=== PATIENT | male | born 1995 ===

== ENCOUNTER 2018-01-15 16:34 | Emergency (ER) | payer SELFPAY ==
[2018-01-15] MEDS ORDERED: Iohexol 300 100 ML IJ ONE (17:12)
[2018-01-15] MEDS ORDERED: Sodium Chloride 0.9% 50 ML IV ONE (17:13)
[2018-01-15 17:54] LABS: BASO % 0.1 % (0.0-2.0); EOS % 0.4 % (0.0-4.0); HEMOGLOBIN 14.5 g/dL (12.0-18.0); LYMPH # 1.5 K/uL (1.0-4.3); LYMPH % 17.1 % (20.0-40.0); MEAN CELL VOLUME 89.4 fl (80.0-94.0); MEAN CORPUSCULAR HEMOGLOBIN 31.3 pg (27.0-31.0); MEAN PLATELET VOLUME 9.1 fl (7.2-11.7); MONO # 0.6 K/uL (0.0-0.8); MONO % 6.8 % (0.0-10.0); NEUT # 6.7 K/uL (1.8-7.0); NEUT % 75.6 % (50.0-75.0); RBC 4.64 Mil/uL (4.40-5.90); RED CELL DISTRIBUTION WIDTH 12.7 % (11.5-14.5); WHITE BLOOD COUNT 8.8 K/uL (4.8-10.8)
[2018-01-15 18:03] LABS: ALB/GLOB RATIO 1.1 (1.0-2.1); ALBUMIN 4.4 g/dL (3.5-5.0); ALT/SGPT 38 U/L (21-72); AST/SGOT 24 U/L (17-59); BLOOD UREA NITROGEN 15 mg/dl (9-20); CALCIUM 9.5 mg/dL (8.4-10.2); GFR AFRICAN-AMERICAN > 60; GFR NON-AFRICAN AMERICAN > 60
--- NOTE | 2018-01-15 19:06 | ED PDOC ---
HPI: Skin/Bite Injury Time Seen by Provider: 01/15/18 16:54 Chief Complaint (Nursing): Abnormal Skin Integrity Chief Complaint (Provider): Presumed right buttock abscess History Per: Patient History/Exam Limitations: no limitations Onset/Duration Of Symptoms: Persistent (8 weeks) Current Symptoms Are (Timing): Still Present Location Of Injury: Right: Buttock Quality Of Symptoms: Painful, Draining Additional History Per: Patient Additional Complaint(s): 22yo male, sent to ER from clinic for evaluation of a presumed right buttock abscess. Patient states the symptoms have been ongoing for approximately 8 weeks with pain and recently the abscess has started draining. Patient went to a hospital in [place] in early November and states "they didn't do anything for me. " Patient was evaluated at [facility] and started on an unknown antibiotic, which the patient states he completed earlier this month. He does report a fever 5 days ago and states he has pain with defecation. Otherwise, patient denies any other skin problems, abscesses, and offers no other medical complaints. Past Medical History Reviewed: Historical Data, Nursing Documentation, Vital Signs Vital Signs: Last Vital Signs Temp 99.1 F 01/15/18 19:41 Pulse 70 01/15/18 21:49 Resp 18 01/15/18 21:49 BP 118/75 01/15/18 21:49 Pulse Ox 100 01/15/18 21:49 - Medical History PMH: No Chronic Diseases Denies: Chronic Kidney Disease - Surgical History Surgical History: No Surg Hx - Family History Family History: States: No Known Family Hx - Social History Current smoker - smoking cessation education provided: No - Immunization History Hx Tetanus Toxoid Vaccination: No Hx Influenza Vaccination: No Hx Pneumococcal Vaccination: No - Allergies Allergies/Adverse Reactions: Allergies Allergy/AdvReac Type Severity Reaction Status Date / Time Penicillins Allergy RASH Verified 01/15/18 16:38 Review of Systems ROS Statement: Except As Marked, All Systems Reviewed And Found Negative Constitutional: Positive for: Fever (5 days ago). Negative for: Chills Gastrointestinal: Negative for: Vomiting, Diarrhea Genitourinary Male: Negative for: Dysuria, Frequency, Hematuria Skin: Positive for: Other (painful drianing abscess to right buttock) Physical Exam - Reviewed Nursing Documentation Reviewed: Yes Vital Signs Reviewed: Yes - Physical Exam Appears: Positive for: Non-toxic Skin: Positive for: Warm, Dry Cardiovascular/Chest: Negative for: Tachycardia Respiratory: Negative for: Respiratory Distress Rectal: Positive for: Other (right buttock with a 6cm area of tenderness, induration and drainage. There is a questionable small mass like tissue extruding from wound.). Negative for: Tenderness Neurologic/Psych: Positive for: Alert, Oriented. Negative for: Motor/Sensory Deficits - Laboratory Results Result Diagrams: 01/15/18 17:49 01/15/18 17:49 - ECG O2 Sat by Pulse Oximetry: 98 (RA) Pulse Ox Interpretation: Normal Medical Decision Making Medical Decision Making: Impression: Given clinical exam and 8+ weeks of symptoms, concern for complexity to lesion/malignancy Plan: -- Labs -- CT Pelvis w/ IV contrast [address] Woo pending imaging studies. Scribe Attestation: Documented by Karen Peace, acting as a scribe for Demarcus Peoples DO. Provider Scribe Attestation: All medical record entries made by the Scribe were at my direction and personally dictated by me. I have reviewed the chart and agree that the record accurately reflects my personal performance of the history, physical exam, medical decision making, and the department course for this patient. I have also personally directed, reviewed, and agree with the discharge instructions and disposition. Disposition - Clinical Impression Clinical Impression: Fistula - Patient ED Disposition Is Patient to be Admitted: Transfer of Care - Disposition Referrals: Valerie Ramsey MD [Staff Provider] - Disposition: Transfer of Care Disposition Time: 19:10 Condition: STABLE Instructions: Enterocutaneous Fistula (DC) Forms: SinglePlatform Connect (Tuvaluan) Print Language: CITIZEN OF [place] Patient Signed Over To: Sha Woo Handoff Comments: Pending CT study, reevaluation
--- NOTE | 2018-01-15 19:33 | ED PDOC ---
- Laboratory Results Result Diagrams: 01/15/18 17:49 01/15/18 17:49 - ECG O2 Sat by Pulse Oximetry: 98 (RA) Pulse Ox Interpretation: Normal Medical Decision Making Medical Decision Making: Time: [address] Re[address] Peoples pending CT studies. Time: 2009 CT Pelvis FINDINGS: Bowel: Unremarkable. Appendix: Normal appendix. Intraperitoneal space: Unremarkable. No free air. No significant fluid collection. Bladder: Unremarkable. No mass. Reproductive: Unremarkable as visualized. Bones/joints: No acute fracture. No dislocation. Soft tissues: There is a soft tissue density in the medial right buttock measuring 3.5 x 0.9 cm possibly representing a rectocutaneous fistula or phlegmon formation. No definite abscess is identified. Vasculature: Unremarkable. No lower abdominal aortic aneurysm. Lymph nodes: Unremarkable. No enlarged lymph nodes. IMPRESSION: There is a soft tissue density in the medial right buttock measuring 3.5 x 0.9 cm possibly representing a rectocutaneous fistula or phlegmon formation. No definite abscess is identified. Time: 2014 Case discussed with surgery resident circular sawyer stone, who will evaluate patient at bedside. Time: 2041 Patient seen and evaluated by assistant professor surgical technology and Dr. Gonzales. Patient has a scheduled surgical appointment with Dr. Ramsey in [address] Gonzales, patient does not need antibiotics. Discussed with patient to keep scheduled appointment with Dr. Ramsey; he is agreeable with plan and is stable for discharge home. Scribe Attestation: Documented by Karen Peace, acting as a scribe for Sha Woo MD. Provider Scribe Attestation: All medical record entries made by the Scribe were at my direction and personally dictated by me. I have reviewed the chart and agree that the record accurately reflects my personal performance of the history, physical exam, medical decision making, and the department course for this patient. I have also personally directed, reviewed, and agree with the discharge instructions and disposition. Disposition - Clinical Impression Clinical Impression: Fistula - POA Present On Arrival: None - Disposition Referrals: Valerie Ramsey MD [Staff Provider] - Disposition: Routine/Home Disposition Time: 21:39 Condition: STABLE Instructions: Enterocutaneous Fistula (DC) Forms: SOAK (Smart [employer]ational [employer] toolKit) (Solomon Islander) Print Language: URDU
[2018-01-15 19:42] VITALS: TEMP 99.1
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
[2018-01-15 21:50] VITALS: BP 118/75; PULSE 70; RESP 18
--- NOTE | 2018-01-16 14:59 | CT ---
Date of service: 01/15/2018 PROCEDURE: CT pelvis HISTORY: R buttock abscess COMPARISON: Not available TECHNIQUE: Computed tomography of the pelvis was performed following the intravenous administration of contrast material. Contiguous 2.5 mm axial sections were acquired through the pelvis. Sagittal and coronal images were reformatted from the axial scan. Total exam DLP: 178.79 mGy-cm. This CT exam was performed using 1 or more of the following dose reduction techniques: Automated exposure control, adjustment of the mA and/or kV according to patient size, and/or use of iterative reconstruction technique. FINDINGS: There is abnormal soft tissue density along medial right gluteus extending along the right for lateral aspect of the gluteal crease and along decreased towards the anus. This soft tissue density measures approximately 0.8 x 2.8 x 3.8 cm. It is flattened, adjacent to the gluteal crease. There is no clear evidence of perianal abscess. The findings are not felt to reflect a jose l abscess as no low-density collection is evident. Focal thickening of the skin at the site of this abnormal soft tissue density suggests cellulitis. The pelvic contents are unremarkable in appearance aside from mild sigmoid diverticulosis. There is no evidence diverticulitis. No abnormal bowel loops are otherwise appreciated. A normal appendix is identified. The bladder is unremarkable. The prostate and seminal vesicles are normal in appearance. There is no lymphadenopathy seen. The visualized osseous structures are unremarkable. IMPRESSION: Focal flattened soft tissue density along right gluteal crease extending toward the anus, without evidence of jose l abscess, either in the gluteal region or perianal abscess. Likely focal cellulitis. Possibility of rectocutaneous fistula should be considered. The preliminary findings for this examination were reported by Mogreet at 6:10 p.m. on 01/15/2018. There is concurrence of this report with the preliminary findings.
[2018-01-19 15:00] VITALS: O2SAT 98
== END 2018-01-15 21:52 | disposition home or self-care (01) ==
LOC: H.ER 16:34
DX: L02.31 Cutaneous abscess of buttock (principal); Z88.0 Allergy status to penicillin
CPT/HCPCS: 72193; 80053; 85025; 99283; Q9967

== ENCOUNTER 2018-02-22 10:19 | Emergency (ER) | payer OTHER ==
[2018-02-22 10:26] VITALS: BP 120/75; PULSE 76; RESP 18; TEMP 97; O2SAT 99
[2018-02-22 10:27] VITALS: BMI 20.8
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
== END 2018-02-22 12:16 | disposition home or self-care (01) ==
LOC: H.ER 10:19
DX: K60.3 Anal fistula (principal); Z88.0 Allergy status to penicillin

== ENCOUNTER 2018-10-11 06:04 | Day surgery (SDC) | payer SELFPAY ==
[2018-10-11 06:59] VITALS: BMI 24.3
[2018-10-11] MEDS ORDERED: Propofol 10 mg/ml Inj (20 ML) ONE (07:20)
[2018-10-11] MEDS ORDERED: Rocuronium 10 mg/ml (5 ml) ONE (07:21)
[2018-10-11] MEDS ORDERED: Lidocaine 4% (Laryng-O-Jet) Kit MM ONE (07:21)
[2018-10-11] MEDS ORDERED: Succinylcholine Chloride 20 mg/ml Syr (5 ml) IV ONE (07:21)
[2018-10-11] MEDS ORDERED: Midazolam 2 MG/2 ML VIAL ONE (07:21)
[2018-10-11] MEDS ORDERED: ePHEDrine 50 mg/ml Inj ONE (07:21)
[2018-10-11] MEDS ORDERED: Bupivacaine 0.5% Inj(30mL) ONE (08:19)
[2018-10-11] MEDS ORDERED: Clindamycin 300 mg/2 ml Inj IVPB ONE ×2 (08:37)
[2018-10-11] MEDS ORDERED: Dexamethasone 4 mg/1 ml ONE (08:40)
[2018-10-11] MEDS ORDERED: HYDROmorphone 0.5 mg/0.5 ml ISec IVP PRN (09:27)
[2018-10-11] MEDS ORDERED: Lactated Ringer's 1,000 ML IV SCH (09:30)
--- NOTE | 2018-10-11 09:34 | PCM.SURG1 ---
Surgeon's Initial Post Op Note - Surgeon's Notes Surgeon: Dr. Ramsey Baker Second: Dasia PGY2 Type of Anesthesia: General Endo Anesthesia Administered By: Dr. Malin Pre-Operative Diagnosis: Fistula in ano Operative Findings: Fistula in ano, posterior Post-Operative Diagnosis: Fistula in ano Operation Performed: Fistulectomy Specimen/Specimens Removed: None Estimated Blood Loss: EBL {In ML}: 10 Blood Products Given: N/A Drains Used: No Drains Post-Op Condition: Good Date of Surgery/Procedure: 10/11/18 Time of Surgery/Procedure: 09:34
--- NOTE | 2018-10-11 09:35 | PCM.OP ---
Operative Report - Operative Report Date of Surgery/Procedure: 10/11/18 Time of Surgery/Procedure: 09:41 Surgeon: Dr. Ramsey Missile Facilities Repairer: Dasia WALL Anesthesia/Sedation: General Endo Dr. Malin Pre-Operative Diagnosis: Fistula in ano Post-Operative Diagnosis: Fistula in ano Indication for Surgery: Fistula in ano, pain Operative Findings: fistula in ano, posterior Procedure/Operation Description: Procedure: Fistulectomy 23 M with PMH of perirectal abscess and fistula in ano presents today for fistulectomy. Patient has been having consistent pain with intermittent drainage since perirectal abscess. Consent was obtained prior to the procedure. Risks/benefits were discussed with the patient. Patient verbalized understanding and agreement to proceed with procedure. Patient was taking to the operating room and place in the supine position. SCDs were applied to bilateral lower extremities. Geneal endotracheal anesthesia was administered for the procedure. After intubation, patient was placed in the lithotomy position. The Fistula exit point was identified on posterior and in ferior to right gluteal fold. The perianal region was prepped with betadine and drpped in the usual sterile fashion. Timeout was performed. The probe was used to identified the fistula tract towards the posterior portion of the perianal region. The probe exited the anal mucosa in the 8 o'clock position (lithotomy position). The grooved dilator was then placed in the fistula tract in place of the probe. Electrocautery, on the cut setting was then used to open of the tract from mucosa entrance to cutaneous exit wound. Hemostasis was achieved with pressure and electrocautery. A piece of surgicel was place in the wound. Gauze was then placed on top for dressing. All nursing counts were correct and confirmed. EBL was 10 cc. Patient tolerated procedure well with no apparent complications. Patient was then extubated and transferred to PACU for recovery. Patient stable for discharge to home when all SDS criteria are met. Estimated Blood Loss: 10 cc Complications: None Discharge & Condition: Good, patient stable for discharge to home after SDS criteria is met.
--- NOTE | 2018-10-11 09:35 | CP.SDSHP ---
Same Day Surgery H & P - History Proposed Procedure: Fistulectomy Pre-Op Diagnosis: Fistula in ano - Previous Medical/Surgical History Pain: 2.Mild Pain Comments: history of perirectal abscess, fistula in ano Previous Surgical History: I&D for perirectal abscess - Allergies Allergies: Allergies Penicillins Allergy (Verified 01/15/18 16:38) RASH sulfamethoxazole [From Bactrim] Allergy (Verified 09/30/18 18:28) RASH trimethoprim [From Bactrim] Allergy (Verified 09/30/18 18:28) RASH - Physical Exam General Appearance: NAD, well nourished, non-toxic Vital Signs: Vital Signs 10/11/18 10/11/18 06:59 07:45 Temperature 98 F Pulse Rate 92 H 92 H Respiratory 18 Rate Blood Pressure 125/73 O2 Sat by Pulse 98 Oximetry Mental Status: Alert & Oriented x3 Neuro: WNL Heart: WNL Lungs: WNL GI: Other (Fistula in ano) - {Optional Preform as Required} Rectal: Other (Fistula in ano, posterior) - Impression Impression: 23 M with PMH of perirectal abscess s/p I&D, Fistula in ano presents for Fistulectomy Pt. Evaluated Today:Candidate for Anesthesia & Procedure: Yes - Date & Time Date: 10/11/18 Time: 07:45 Short Stay Discharge - Short Stay Discharge Admitting Diagnosis/Reason for Visit: K60.5 Disposition: HOME/ ROUTINE Referrals: Valerie Ramsey MD [Staff Provider] - Instructions: Anal Abscess and Fistula (DC) Additional Instructions (Diet, Activity): Take pain medication as prescribed Keep area clean and dry may change dressing as needed May shower follow up with within 1-2 weeks as outpatient Call Dr. Ramsey's office for any issues [place] medicamentos para el dolor segn lo prescrito Mantenga el danielle limpia y seca puede cambiar el vendaje segn sea necesario Puede ducharse seguimiento con el dentro de 1-2 semanas maycol paciente ambulatorio Llame a la oficina del Dr. Ramsey para cualquier problema. Progress Note/Discharge Note with Instructions: 23 M with PMH of perirectal abscess and Fistula in ano now s/p Fistulectomy Patient tolerated procedure well with no apparent complications. Patient stable for discharge to home when SDS criteria is met.
[2018-10-11] MEDS ORDERED: Oxycodone/Acetaminophen 5/325 mg Tab PO PRN (09:40)
[2018-10-11 12:00] VITALS: RESP 18
[2018-10-11] MEDS ORDERED: Oxycodone/Acetaminophen 5/325 mg Tab PO ONE (12:50)
[2018-10-11 17:06] VITALS: BP 120/60; PULSE 98; TEMP 98; O2SAT 96
== END 2018-10-11 16:40 | disposition home or self-care (01) ==
LOC: H.OPSURG 06:04
PROVIDERS: ATTEND Specialist
DX: K60.5 Anorectal fistula (principal); K61.1 Rectal abscess; Z88.0 Allergy status to penicillin
CPT/HCPCS: 46270; J1100; J1170; J2001; J2250; J2405; J2704; J3010; J7120